=== PATIENT | female | born 2000 ===

== ENCOUNTER 2023-07-12 23:30 | Emergency (ER) | payer OTHER ==
[~2023-07-12] VITALS: Ht 172.7 cm; Wt 81.9 kg
[2023-07-13] MEDS ORDERED: NS 1,000 ML IV ONE (00:15)
[2023-07-13] MEDS ORDERED: LEVETIRACETAM IV ONE (00:15)
[2023-07-13 00:27] LABS: MEAN CELL VOLUME 76 fl (78-100); MEAN CORPUSCULAR HEMOGLOBIN 23 pg (27-31); MEAN CORPUSCULAR HGB CONC 30 g/dL (33-37); MEAN PLATELET VOLUME 9.6 fl (7.4-10.4); PLATELET COUNT 477 K/mm3 (130-400); RED BLOOD COUNT 4.35 M/mm3 (4.10-5.30); RED CELL DISTRIBUTION WIDTH 17.5 % (11.5-14.5)
[2023-07-13 00:29] LABS: ALBUMIN 4.6 g/dL (3.5-5.0); SODIUM 140 mmol/L (136-145)
[2023-07-13 00:30] LABS: CALCIUM 9.8 mg/dL (8.3-10.5)
[2023-07-13] MEDS ORDERED: Ketorolac 30 MG/ML VIAL IV ONE (00:30)
[2023-07-13] MEDS ORDERED: LORazepam 2 MG/ML VIAL IV PRN (00:30)
[2023-07-13 00:32] LABS: GLUCOSE 82 mg/dL (65-105); TOTAL PROTEIN 7.6 g/dL (6.4-8.3)
[2023-07-13 00:33] LABS: CARBON DIOXIDE 22 mmol/L (22-29); TOTAL BILIRUBIN 0.2 mg/dL (0.2-1.2)
[2023-07-13 00:35] LABS: ALCOHOL IN-HOUSE < 10 mg/dL (<10)
[2023-07-13 00:37] LABS: AST-SGOT 24 U/L (5-34)
[2023-07-13 00:38] LABS: ALT/SGPT 17 U/L (0-55)
[2023-07-13 01:00] LABS: TROPONIN-I < 0.030 ng/mL (0.00-0.033)
[2023-07-13 01:10] LABS: LYMPHOCYTE 48 % (20-51); MONOCYTE 8 % (3-10); NEUTROPHILS 41 % (42-75)
[2023-07-13 01:11] LABS: HYPOCHROMIA 1+; MICROCYTOSIS 2+; OVALOCYTES 1+; POLYCHROMASIA 1+
[2023-07-13] MEDS ORDERED: KEPPRA750 M1 PO (01:59)
[2023-07-13] MEDS ORDERED: LEVOTHYROXIN0.025 MG PO (01:59)
[2023-07-13 02:30] VITALS: BP 106/53
[2023-07-14] MEDS ORDERED: LEVEMIR100 U/M1 SQ (21:01)
== END 2023-07-13 02:30 | disposition home or self-care (01) ==
LOC: ED 23:30
PROVIDERS: Family Medicine
DX: R07.89 Other chest pain (principal); E03.9 Hypothyroidism, unspecified; D50.9 Iron deficiency anemia, unspecified; T42.6X6A Underdosing of other antiepileptic and sedative-hypnotic drugs, initial encounter; Z91.128 Patient's intentional underdosing of medication regimen for other reason
CPT/HCPCS: J1885; J1953; J2060; J7030

== ENCOUNTER 2023-07-14 20:11 | Emergency (ER) | payer OTHER ==
[~2023-07-14] VITALS: Ht 172.7 cm; Wt 81.9 kg
[~2023-07-14 20:11] MED LIST: KEPPRA750 M1 PO; LEVOTHYROXIN0.025 MG PO
[2023-07-14] MEDS ORDERED: LEVEMIR100 U/M1 SQ (21:01)
[2023-07-14 21:15] LABS: CALCIUM 9.7 mg/dL (8.3-10.5)
[2023-07-14] MEDS ORDERED: levETIRAcetam 500 MG TAB PO ONE (21:45)
[2023-07-14 23:20] VITALS: BP 127/83
== END 2023-07-14 23:20 | disposition home or self-care (01) ==
LOC: ED 20:11
PROVIDERS: Family Medicine
DX: G40.909 Epilepsy, unspecified, not intractable, without status epilepticus (principal); E11.9 Type 2 diabetes mellitus without complications; Z79.4 Long term (current) use of insulin; Z79.899 Other long term (current) drug therapy